=== PATIENT | male | born 1990 | race Caucasian/White ===

== ENCOUNTER 2016-09-29 05:05 | Emergency (ER) | payer OTHER ==
[~2016-09-29] VITALS: Ht 170.2 cm; Wt 72.3 kg
[~2016-09-29 05:05] MED LIST: ATARAX,VISTARIL25 MG PO; BENTYL10 MG PO; IMODIUM MS REL1 EACH PO; MOTRIN800 MG PO; QUETIAPINE FUMA50 MG PO; SYNTHROID200 MCG PO; ZANTAC300 MG PO; ZOFRAN ODT4 MG PO; ZOFRAN4 MG PO
[2016-09-29 05:37] LABS: ADD MIUA? YES; BILIRUBIN NEGATIVE; BLOOD NEGATIVE; COLOR YELLOW ((YELLOW)); GLUCOSE (STRIP) NEGATIVE; KETONES 5; LEUKOCYTES NEGATIVE; NITRITE NEGATIVE; PROTEIN (STRIP) NEGATIVE; SPECIFIC GRAVITY 1.029 (1.000-1.030); UROBILINOGEN 0.2 MG/DL (0.2-1.0)
[2016-09-29 05:41] LABS: BACTERIA NONE SEEN /HPF; EPITHELIAL CELLS NONE SEEN /HPF; HYALINE CASTS 0-5 /LPF; MUCUS 4+ /LPF; RED BLOOD CELLS 0-5 /HPF (0-5); UCUL ADDED? NO; WHITE BLOOD CELLS 0-5 /HPF (0-5)
[2016-09-29 06:09] LABS: CHLORIDE 105 mEq/L (99-109); POTASSIUM 3.6 mEq/L (3.7-5.4); SODIUM 140 mEq/L (136-147)
[2016-09-29 06:11] LABS: GLUCOSE 90 mg/dL (70-99)
[2016-09-29 06:12] LABS: ANION GAP 8 MEQ/L (2-14)
[2016-09-29 06:13] LABS: TOTAL BILIRUBIN 0.5 mg/dL (0.0-1.0)
[2016-09-29 06:14] LABS: ALKALINE PHOSPHATASE 84 IU/L (3-129)
[2016-09-29 06:15] LABS: GFR ESTIMATE (CALCULATED) > 59 mL/min/
[2016-09-29 06:16] LABS: UREA NITROGEN (BUN) 14 mg/dL (9-23)
[2016-09-29 06:18] LABS: LIPASE 41 U/L (1.0-51.0)
[2016-09-29 07:29] LABS: HEMATOCRIT 41.3 % (38.0-50.0); MCHC 34.9 G/DL (30.0-36.0); MCV 80.4 FL (86-99); MEAN PLAT.VOLUME 11.3 uM^3 (9.0-12.4); PLATELET COUNT 214 K/uL (156-360); RBC DIS.WIDTH-CV 12.1 % (11.8-14.6); RED BLOOD COUNT 5.14 M/uL (4.00-5.50); WHITE BLOOD COUNT 7.2 K/uL (4.1-10.2)
[2016-09-29 07:41] VITALS: BP 103/66
[2016-09-29] MEDS ORDERED: ZOFRAN4 MG PO (07:44)
== END 2016-09-29 08:21 | disposition home or self-care (01) ==
LOC: EME 05:05
DX: K92.0 Hematemesis (principal); Q35.3 Cleft soft palate; R19.7 Diarrhea, unspecified; F17.220 Nicotine dependence, chewing tobacco, uncomplicated
CPT/HCPCS: 80053; 81003; 83690; 85027; 99281; 99284; J2405; J7030

== ENCOUNTER 2017-02-12 21:42 | Emergency (ER) | payer OTHER ==
[~2017-02-12] VITALS: Ht 172.7 cm; Wt 67.1 kg
[2017-02-12 22:04] LABS: ADD MIUA? YES; BILIRUBIN NEGATIVE; BLOOD SMALL; COLOR YELLOW ((YELLOW)); GLUCOSE (STRIP) NEGATIVE; KETONES NEGATIVE; LEUKOCYTES NEGATIVE; NITRITE NEGATIVE; PROTEIN (STRIP) NEGATIVE; SPECIFIC GRAVITY 1.011 (1.000-1.030); UROBILINOGEN 0.2 MG/DL (0.2-1.0)
[2017-02-12 22:18] LABS: BACTERIA RARE /HPF; EPITHELIAL CELLS RARE /HPF; MUCUS TRACE /LPF; RED BLOOD CELLS 0-5 /HPF (0-5); UCUL ADDED? NO; WHITE BLOOD CELLS 0-5 /HPF (0-5)
[2017-02-12 22:30] LABS: HEMATOCRIT 43.2 % (38.0-50.0); MCH 28.5 PG (29.0-34.0); MCHC 35.4 G/DL (30.0-36.0); MCV 80.4 FL (86-99); PLATELET COUNT 163 K/uL (156-360); RBC DIS.WIDTH-CV 11.4 % (11.8-14.6); RED BLOOD COUNT 5.37 M/uL (4.00-5.50); WHITE BLOOD COUNT 9.1 K/uL (4.1-10.2)
[2017-02-12 23:01] LABS: ALKALINE PHOSPHATASE 59 IU/L (3-129); ANION GAP 6 MEQ/L (2-14); CHLORIDE 100 MEQ/L (99-109); GFR ESTIMATE (CALCULATED) > 59 mL/min/; GLUCOSE 96 mg/dL (70-99); LIPASE 38 U/L (1.0-51.0); SAMPLE HEMOLYSIS CHECK 0; SAMPLE ICTERIC CHECK 0; SAMPLE LIPEMIA CHECK 0; SODIUM 137 MEQ/L (136-147); TOTAL BILIRUBIN 0.7 MG/DL (0.0-1.0); UREA NITROGEN (BUN) 13 mg/dL (9-23)
[2017-02-13] MEDS ORDERED: ZOFRAN4 MG PO (00:41)
[2017-02-13] MEDS ORDERED: BENTYL10 MG PO (00:41)
[2017-02-13 00:58] VITALS: BP 106/70
== END 2017-02-13 01:00 | disposition home or self-care (01) ==
LOC: EME 21:42
DX: R10.9 Unspecified abdominal pain (principal); R11.2 Nausea with vomiting, unspecified
CPT/HCPCS: 74177; 80053; 81003; 83690; 85027; 99281; 99285; J2270; J2405; J7030; S0028

== ENCOUNTER 2017-02-16 21:36 | Emergency (ER) | payer OTHER ==
[~2017-02-16] VITALS: Ht 170.2 cm; Wt 66.3 kg
[2017-02-16 22:18] LABS: HEMATOCRIT 40.3 % (38.0-50.0); MCH 28.7 PG (29.0-34.0); MCHC 36.5 G/DL (30.0-36.0); MCV 78.6 FL (86-99); MEAN PLAT.VOLUME 10.5 uM^3 (9.0-12.4); PLATELET COUNT 265 K/uL (156-360); RBC DIS.WIDTH-CV 11.8 % (11.8-14.6); RBC DIS.WIDTH-SD 33.2 % (39-53); RED BLOOD COUNT 5.13 M/uL (4.00-5.50); WHITE BLOOD COUNT 10.6 K/uL (4.1-10.2)
[2017-02-16 22:25] LABS: CHLORIDE 106 mEq/L (99-109); SODIUM 142 mEq/L (136-147)
[2017-02-16 22:26] LABS: POTASSIUM 3.1 mEq/L (3.7-5.4)
[2017-02-16 22:27] LABS: GLUCOSE 94 mg/dL (70-99)
[2017-02-16 22:28] LABS: ANION GAP 12 MEQ/L (2-14)
[2017-02-16 22:31] LABS: GFR ESTIMATE (CALCULATED) > 59 mL/min/; UREA NITROGEN (BUN) 6 mg/dL (9-23)
[2017-02-16] MEDS ORDERED: QUETIAPINE FUMA50 MG PO (22:50)
[2017-02-17 00:10] LABS: ADD MIUA? YES; BILIRUBIN NEGATIVE; BLOOD NEGATIVE; COLOR AMBER ((YELLOW)); GLUCOSE (STRIP) NEGATIVE; KETONES NEGATIVE; LEUKOCYTES NEGATIVE; NITRITE NEGATIVE; PROTEIN (STRIP) 100; SPECIFIC GRAVITY 1.025 (1.000-1.030); UROBILINOGEN 0.2 MG/DL (0.2-1.0)
[2017-02-17 00:18] LABS: BACTERIA NONE SEEN /HPF; EPITHELIAL CELLS RARE /HPF; HYALINE CASTS 0-5 /LPF; MUCUS 3+ /LPF; RED BLOOD CELLS 0-5 /HPF (0-5); UCUL ADDED? NO; WHITE BLOOD CELLS 0-5 /HPF (0-5)
[2017-02-17 02:03] LABS: TOTAL BILIRUBIN 0.5 mg/dL (0.0-1.0)
[2017-02-17 02:04] LABS: ALKALINE PHOSPHATASE 59 IU/L (3-129)
[2017-02-17 02:07] LABS: DIRECT BILIRUBIN 0.2 mg/dL (0.0-0.3)
[2017-02-17 02:08] LABS: LIPASE 78 U/L (1.0-51.0)
[2017-02-17 04:25] VITALS: BP 108/72
== END 2017-02-17 04:27 | disposition home or self-care (01) ==
LOC: EME 21:36
DX: R10.10 Upper abdominal pain, unspecified (principal); E03.1 Congenital hypothyroidism without goiter; Q35.9 Cleft palate, unspecified
CPT/HCPCS: 71020; 80048; 80076; 81003; 83690; 85027; 93005; 99281; 99285; J2765; J3010; J7030